=== PATIENT | male | born 1950 | race Caucasian/White ===

== ENCOUNTER 2016-11-30 00:10 | Day surgery (SDC) | payer MEDICARE ==
[~2016-11-30] VITALS: Ht 166.4 cm; Wt 98.0 kg
[2016-11-30] VITALS (12 sets, daily range): BP systolic 106–132; BP diastolic 57–99; PULSE 74–125; RESP 14–22; O2SAT 93–98
[~2016-11-30 00:10] MED LIST: AMLO10TA3 PO; ATRV10T PO; CELE200C PO; CETI-263 PO; CHOL100094 PO; FLUT16SP2 NS; HYDR12.55 PO; METO25TA99 PO; OXYC-284 PO; PSEU120T50 PO; ZOLP10TA5 PO
[2016-11-30 07:37] LABS: BASOPHILS % (AUTO) 0.1 % (0-3); EOSINOPHILS % (AUTO) 0.2 % (0-5); MONOCYTES % (AUTO) 10.3 % (4-12); Mean Corpuscular Hemoglobin 27.2 pg (27.0-35.0); Mean Corpuscular Volume 81.1 fL (81-100); NEUTROPHILS % (AUTO) 77.4 % (40-74); Platelet Count 359 bil/L (150-400)
[2016-11-30] MEDS ORDERED: Heparin 1,000 Units/500 mL NS Premix IV ONE (08:31)
[2016-11-30] MEDS ORDERED: 0.9% Sodium Chloride 1,000 ML ONE (08:31)
[2016-11-30] MEDS ORDERED: Amiodarone 150 mg/100 mL D5W IV ONE (08:35)
[2016-11-30] MEDS ORDERED: Amiodarone 150 mg/100 mL D5W Premix IV ONE (08:50)
[2016-11-30 09:10] LABS: APPEARANCE,URINE CLEAR (CLEAR,HAZY); COLOR,URINE STRAW (YELLOW); OCCULT BLOOD,URINE NEGATIVE (NEGATIVE); UROBILINOGEN,URINE NORMAL (NORMAL)
[2016-11-30] MEDS ORDERED: fentaNYL-PF 50 mCg/mL 2 mL Inj ONE ×2 (09:18→09:43)
--- NOTE | 2016-11-30 10:58 | CS94 ---
[place] [address] DIAGNOSTIC CARDIAC CATHETERIZATION PATIENT: MIKA MONTES DE OCA : 1950 MR#: [id number] ADMIT: 11/30/2016 JOB ID: [id number] SERVICE DATE: 11/30/2016 PATIENT PROFILE: The patient is a 66-year-old male with history of hypertension, hypercholesterolemia and tobacco chew of one can per day for 20 years and quit chewing 20 years ago. He has symptomatic severe aortic stenosis. PROCEDURE: 1. Right heart catheterization. 2. Retrograde left heart catheterization. 3. Selective coronary angiography. VASCULAR CLOSURE DEVICE: None. COMPLICATION: None. METHOD: Combined left and right heart catheterization was performed from the right groin under 1% lidocaine local anesthesia using a 6-Palestinian and a 7-Palestinian sheaths. A 7-Palestinian [place]-Valeri catheter was used for the right heart pressures. Cardiac output was determined by both thermodilution technique and TRA method. The patient is in atrial fibrillation at the present time. Selective coronary angiogram was performed in multiple projections, including cranial and caudal angulations with hand injected contrast via JL4 and 3DRC catheters. Following sheath removal, hemostasis was achieved by manual compression. The patient tolerated the procedure well. He was transferred to [facility] in good condition. TOTAL CONTRAST USED: 50 cc. FLUOROSCOPY TIME: 7.7 minutes. RESULTS: 1. Mean right atrial pressure is 4 mmHg. Right ventricular pressure is 28/1 mmHg. Pulmonary artery pressure is 29/14 mmHg. 2. Arterial oxygen saturation is 91%. Mixed venous saturation is 66%. 3. Cardiac output by the TRA method is 4.98 L/minute with an index of 2.43 L/minute/m sq. 4. Cardiac output by the thermodilution technique is 3.85 L/minute with an index of 1.88 L/minute/m sq. 5. Aortic pressure is 131/82 mmHg. 6. Selective coronary angiogram: a. Left main coronary artery is normal. b. The left anterior descending artery is transapical and has minimal disease. c. The circumflex artery has minimal disease. d. The dominant right coronary artery is normal. CONCLUSION: 1. Normal pulmonary artery pressure. 2. Cardiac index is 1.88 L/minute/m sq. 3. Minimal coronary artery disease. [facility]
[2016-11-30] MEDS ORDERED: oxyCODONE-Acetamin 5-325 mg Tablet PO ONE ×2 (11:12→11:19)
[2016-11-30] MEDS ORDERED: DABI150C PO (13:57)
--- NOTE | 2016-11-30 17:02 | NUR ---
PATIENT HAS BEEN OFF BEDREST SINCE 16:20. HE HAS BEEN AMBULATORY TO BATHROOM. RIGHT GROIN SITE REMAINS SOFT, NO OOZING OR BLEEDING, OR HEMATOMA. SLIGHT SEROSANGUINOUS DRAINAGE ON THE GAUZE DRSG. DISCHARGE INSTRUCTIONS REVIEWED EARLIER. PT DISCHARGED AMBULATORY WITH HIS FRIEND IN ATTENDANCE.
[2016-12-28] MEDS ORDERED: ASPI-973 PO (17:16)
[2016-12-28] MEDS ORDERED: FLUT9.9S NS (17:20)
[2016-12-28] MEDS ORDERED: [UNRECOGNIZED DRUG - CODE] PO (17:20)
[2016-12-28] MEDS ORDERED: OXYC1TAB24 PO (17:20)
== END 2016-11-30 23:59 | disposition home or self-care (01) ==
LOC: SOUO 00:10
PROVIDERS: ATTEND Internal Medicine Interventional Cardiology
DX: I35.0 Nonrheumatic aortic (valve) stenosis (principal); E78.5 Hyperlipidemia, unspecified; Z82.49 Family history of ischemic heart disease and other diseases of the circulatory system; E03.9 Hypothyroidism, unspecified; Z79.82 Long term (current) use of aspirin; I47.2 Ventricular tachycardia; N18.9 Chronic kidney disease, unspecified; I12.9 Hypertensive chronic kidney disease with stage 1 through stage 4 chronic kidney disease, or unspecified chronic kidney disease; I27.2 Other secondary pulmonary hypertension
CPT/HCPCS: 36415; 80048; 81000; 85025; 87040; 93005; 93456; 99152; 99153; C1760; C1769; J1644; J2250; J3010; J7030; Q9967